=== PATIENT | male | born 1975 | race Caucasian/White ===

== ENCOUNTER 2019-05-24 18:57 | Emergency (ER) | payer MEDICAID, OTHER ==
[~2019-05-24] VITALS: Ht 180.3 cm; Wt 82.6 kg
--- NOTE | 2019-05-24 19:17 | NUR ---
Dr. Finney at bedside for MSE.
--- NOTE | 2019-05-24 19:42 | NUR ---
Xray at bedside.
--- NOTE | 2019-05-24 19:50 | NUR ---
Pt out of ER for CT.
--- NOTE | 2019-05-24 20:08 | NUR ---
Pt back to ER from CT.
--- NOTE | 2019-05-24 20:36 | NUR ---
Patient given written and verbal discharge instructions. Patient verbalizes understanding of instructions. Patient is ambulatory with steady gait. Refuses offer of [facility] placement. Patient given list of available shelters in surrounding area. Pt ambulated out of ER with steady gait, no acute signs of distress, VSS, all belongings taken.
[2019-05-24 20:37] VITALS: BP 110/72
== END 2019-05-24 20:38 | disposition home or self-care (01) ==
LOC: ER 18:57
DX: S16.1XXA Strain of muscle, fascia and tendon at neck level, initial encounter (principal); R51 Headache; M25.562 Pain in left knee; M25.572 Pain in left ankle and joints of left foot; V43.52XA Car driver injured in collision with other type car in traffic accident, initial encounter; Y93.89 Activity, other specified; Y92.89 Other specified places as the place of occurrence of the external cause; Y99.8 Other external cause status
CPT/HCPCS: 70450; 72125; 73610; A4663